=== PATIENT | male | born 1950 | race Caucasian/White ===

== ENCOUNTER 2025-04-03 14:43 | Inpatient (IN) | payer MEDICARE, OTHER ==
[~2025-04-03] VITALS: Ht 170.2 cm; Wt 78.5 kg
[2025-04-03] MEDS ORDERED: LORAZEPAM 2 MG/1 ML VIAL ONE (16:00)
[2025-04-03] MEDS: LORAZEPAM 2 MG/1 ML VIAL IM ONE (16:04)
[2025-04-03] MEDS ORDERED: HALOPERIDOL LACTATE 5 MG/1 ML VIAL ONE (16:05)
[2025-04-03] MEDS ORDERED: diphenhydrAMINE 50 MG/1 ML VIAL ONE (16:05)
[2025-04-03] MEDS: diphenhydrAMINE 50 MG/1 ML VIAL IM ONE (16:16)
[2025-04-03] MEDS: HALOPERIDOL LACTATE 5 MG/1 ML VIAL IM ONE (16:16)
[2025-04-03] MEDS ORDERED: OXCA150T5 PO (16:48)
[2025-04-03] MEDS ORDERED: HYDR453. TP (16:48)
[2025-04-03] MEDS ORDERED: POLY250017 PO (16:48)
[2025-04-03] MEDS ORDERED: DIPH103G TP (16:48)
[2025-04-03] MEDS ORDERED: FLUT1BLS6 INH (16:48)
[2025-04-03] MEDS ORDERED: IPRA3AMP22 IH (16:48)
[2025-04-03] MEDS ORDERED: ATOR20TA PO (16:48)
[2025-04-03] MEDS ORDERED: ONDA-104 PO (16:48)
[2025-04-03] MEDS ORDERED: SENN1TAB77 PO (16:48)
[2025-04-03] MEDS ORDERED: TELM40TA2 PO (16:48)
[2025-04-03] MEDS ORDERED: OLAN5TAB3 PO (16:48)
[2025-04-03] MEDS ORDERED: TIOT18CA3 IH (16:48)
[2025-04-03] MEDS ORDERED: MINE133E RC (16:48)
[2025-04-03] MEDS ORDERED: AMLO10TA59 PO (16:48)
[2025-04-03] MEDS ORDERED: NICO-671 TD (16:48)
[2025-04-03] MEDS ORDERED: MAGN400O6 PO (16:48)
[2025-04-03] MEDS ORDERED: BUDE10.2 IH (16:48)
[2025-04-03] MEDS ORDERED: OLAN2.5T3 PO (16:48)
[2025-04-03] MEDS ORDERED: BISA10SU61 RC (16:48)
[2025-04-03] MEDS ORDERED: CETI-194 PO (16:48)
[2025-04-03 16:55] LABS: PLATELET COUNT (AUTO) 197 K/uL (152-348); RED BLOOD CELL COUNT(AUTO) 4.06 MIL/uL (4.06-5.63); RED CELL DISTRIBUTION WIDTH 13.8 % (12.1-16.2); WHITE BLOOD COUNT (AUTO) 4.8 K/uL (3.6-10.2)
[2025-04-03 17:05] LABS: CREATININE 1.4 mg/dL (0.6-1.3); ETHANOL < 3 MG/DL (0-10); SODIUM SERUM 144 mmol/L (136-145); UREA NITROGEN, BLOOD 30 mg/dL (7-18)
[2025-04-03 17:11] LABS: ASPARTATE AMINOTRANSFERASE 17 U/L (15-37); TOTAL PROTEIN, SERUM 6.7 g/dL (6.4-8.2)
[2025-04-03 17:16] LABS: LACTIC ACID 3.6 mmol/L (0.4-2.0)
[2025-04-03 17:17] LABS: *BILIRUBIN,URIN NEGATIVE (NEGATIVE); *CLARITY,URINE CLEAR (CLEAR); *COLOR,URINE YELLOW (YELLOW); *KETONES,URINE NEGATIVE (NEGATIVE); *PROTEIN,URINE NEGATIVE (NEGATIVE); *UROBILINOGEN,URINE 0.2 E.U./dl (NORMAL); LEUKOCYTE ESTERASE ,URINE NEGATIVE (NEGATIVE); NITRITE, URINE NEGATIVE (NEGATIVE); UGLUCOSE NEGATIVE (NEGATIVE)
[2025-04-03 17:18] LABS: *BLOOD, URINE TRACE (NEGATIVE)
[2025-04-03 17:29] LABS: *AMPHETAMINE, URINE NEGATIVE (NEGATIVE); *BARBITURATE, URINE NEGATIVE (NEGATIVE); *BENZODIAZEPINE, URINE POSITIVE (NEGATIVE); *CANNABINOID, URINE NEGATIVE (NEGATIVE); *COCCAINE, URINE NEGATIVE (NEGATIVE); *OPIATE, URINE NEGATIVE (NEGATIVE); *PHENCYCLIDINE SCREEN,URINE NEGATIVE (NEGATIVE); FENTANYL, URINE NEGATIVE (NEGATIVE)
[2025-04-03 17:32] LABS: SQUAMOUS EPITHELIAL CELL,UR FEW /HPF (NONE SEEN)
[2025-04-03] MEDS ORDERED: MAGNESIUM HYDROXIDE 30 ML LIQUID UDC PO PRN ×2 (19:00→21:15)
[2025-04-03] MEDS ORDERED: BISACODYL 10 MG SUPP.RECT RC PRN (19:00)
[2025-04-03] MEDS ORDERED: MINERAL OIL FLEET ENEMA 133 ML BOTTLE RC PRN (19:00)
[2025-04-03 20:06] VITALS: BP 145/94
[2025-04-03] MEDS ORDERED: MAG HYDROX/AL HYDROX/SIMETH 30 ML LIQUID UDC PO PRN (21:15)
[2025-04-03] MEDS ORDERED: QUETIAPINE FUMARATE 25 MG TABLET PO PRN (21:15)
[2025-04-03 21:35] VITALS: BP 128/100; TEMP 98.2; O2SAT 96
[2025-04-03] MEDS: BLOOD SUGAR DIAGNOSTIC 1 EACH STRIP VI ONE (21:49)
[2025-04-03] MEDS: SENNOSIDES/DOCUSATE SODIUM TABLET PO SCH (22:30)
[2025-04-03] MEDS: ATORVASTATIN 20 MG TABLET PO SCH (22:43)
[2025-04-03] MEDS: ZOLPIDEM 5 MG TABLET PO PRN (22:44)
[2025-04-03] MEDS: QUETIAPINE FUMARATE 25 MG TABLET PO PRN (23:54)
[2025-04-04 08:10] LABS: PLATELET COUNT (AUTO) 212 K/uL (152-348); RED BLOOD CELL COUNT(AUTO) 4.47 MIL/uL (4.06-5.63); RED CELL DISTRIBUTION WIDTH 13.9 % (12.1-16.2); WHITE BLOOD COUNT (AUTO) 5.7 K/uL (3.6-10.2)
[2025-04-04] MEDS: NICOTINE 14 MG/24HR PATCH TD SCH (08:54)
[2025-04-04] MEDS: AMLODIPINE 10 MG TABLET PO SCH (08:57)
[2025-04-04] MEDS: LOSARTAN POTASSIUM 50 MG TABLET PO SCH (08:57)
[2025-04-04] MEDS: CETIRIZINE HCL 10 MG TABLET PO SCH (08:57)
[2025-04-04 08:58] VITALS: BP 118/77; TEMP 98.2; O2SAT 96
[2025-04-04 08:58] LABS: ASPARTATE AMINOTRANSFERASE 31 U/L (15-37); CREATININE 1.0 mg/dL (0.6-1.3); GLUCOSE FASTING 96 mg/dL (70-115); SODIUM SERUM 141 mmol/L (136-145); TOTAL PROTEIN, SERUM 7.4 g/dL (6.4-8.2); UREA NITROGEN, BLOOD 22 mg/dL (7-18)
[2025-04-04] MEDS ORDERED: OXCARBAZEPINE 150 MG TABLET PO SCH (09:00)
[2025-04-04] MEDS ORDERED: OLANZAPINE 5 MG TABLET PO SCH (09:00)
[2025-04-04] MEDS: OLANZAPINE ZYDIS 5 MG TAB.RAPDIS PO PRN (12:41)
[2025-04-04] MEDS: NEUTRA PHOS PACKET PO ONE (12:42)
[2025-04-04] MEDS: DIVALPROEX 125 MG TABLET.DR PO SCH (13:24)
[2025-04-04 16:54] VITALS: BP 159/84; TEMP 98.2; O2SAT 96
[2025-04-04 20:00] VITALS: BP 116/74; TEMP 98; O2SAT 96
[2025-04-04] MEDS: MIRTAZAPINE 15 MG TABLET PO SCH (20:43)
[2025-04-04] MEDS: OLANZAPINE 5 MG TABLET PO SCH (20:43)
[2025-04-04] MEDS: ZOLPIDEM 5 MG TABLET PO PRN (23:16)
[2025-04-05 08:00] VITALS: BP 106/70; TEMP 97.2; O2SAT 97
[2025-04-05] MEDS: DIVALPROEX 250 MG TABLET.DR PO SCH (13:43)
[2025-04-05] MEDS ORDERED: DIVALPROEX 125 MG TABLET.DR PO SCH (14:00)
[2025-04-05 16:00] VITALS: BP 119/82; TEMP 97.5; O2SAT 97
[2025-04-05 18:50] VITALS: O2SAT 97
[2025-04-05 19:00] VITALS: O2SAT 99
[2025-04-05] MEDS: IPRATROPIUM BROMIDE 0.5 MG/2.5 ML NEBU NEB PRN (19:14)
[2025-04-05] MEDS: ALBUTEROL SULFATE 2.5 MG/ 0.5 ML NEBU NEB PRN (19:15)
[2025-04-05 20:00] VITALS: BP 125/82; TEMP 98.2; O2SAT 95
[2025-04-06 08:02] VITALS: BP 122/76; TEMP 98.2; O2SAT 96
[2025-04-06] MEDS: ACETAMINOPHEN 325 MG TABLET PO PRN (09:19)
[2025-04-06 15:27] VITALS: BP_SYST 109; BP_SYST 90; BP_DIAS 52; TEMP 98; O2SAT 100; O2SAT 96
[2025-04-06] MEDS: OLANZAPINE 10 MG VIAL IM ONE (17:04)
[2025-04-06 17:15] VITALS: O2SAT 95
[2025-04-06 17:23] VITALS: O2SAT 98
[2025-04-06 20:51] VITALS: BP 125/70; TEMP 98.1; O2SAT 95
[2025-04-07] VITALS (8 sets, daily range): BP systolic 114–152; BP diastolic 62–81; TEMP 98–98.1; O2SAT 93–100
[2025-04-07] MEDS: MUPIROCIN 2% OINT 22 GM TUBE NS SCH (09:15)
[2025-04-07] MEDS: OLANZAPINE 2.5 MG TABLET PO SCH (10:52)
[2025-04-08] VITALS (7 sets, daily range): BP systolic 125–169; BP diastolic 70–101; TEMP 97.5; O2SAT 96–98
[2025-04-08] MEDS: OLANZAPINE 2.5 MG TABLET PO SCH (08:13)
[2025-04-08] MEDS: OLANZAPINE 10 MG VIAL IM ONE (08:20)
[2025-04-09 08:24] VITALS: BP 101/60; TEMP 98.3; O2SAT 98
[2025-04-09 14:35] VITALS: O2SAT 95
[2025-04-09 14:45] VITALS: O2SAT 98
[2025-04-09 16:41] VITALS: BP 105/68; TEMP 97.5; O2SAT 98
[2025-04-09 23:30] VITALS: O2SAT 95
[2025-04-09 23:40] VITALS: O2SAT 98
[2025-04-10 08:24] VITALS: BP 144/71; TEMP 98.3; O2SAT 98
[2025-04-10] MEDS ORDERED: OLANZAPINE 2.5 MG TABLET PO SCH (14:00)
[2025-04-10] MEDS: OLANZAPINE 5 MG TABLET PO SCH (14:10)
[2025-04-10 15:20] VITALS: O2SAT 98
[2025-04-10 15:30] VITALS: O2SAT 99
[2025-04-10 16:45] VITALS: BP 133/77; TEMP 98; O2SAT 98
[2025-04-11] MEDS ORDERED: DIVALPROEX 250 MG TABLET.DR PO SCH (14:00)
[2025-04-11] MEDS: DIVALPROEX 125 MG TABLET.DR PO SCH (14:15)
[2025-04-11 20:00] VITALS: BP 136/78; TEMP 98.4; O2SAT 98
[2025-04-12] VITALS (8 sets, daily range): BP systolic 130–147; BP diastolic 78–85; TEMP 97.7; O2SAT 94–97
[2025-04-12 07:35] LABS: PLATELET COUNT (AUTO) 220 K/uL (152-348); RED BLOOD CELL COUNT(AUTO) 4.66 MIL/uL (4.06-5.63); RED CELL DISTRIBUTION WIDTH 13.4 % (12.1-16.2); WHITE BLOOD COUNT (AUTO) 4.7 K/uL (3.6-10.2)
[2025-04-12 07:48] LABS: CREATININE 1.4 mg/dL (0.6-1.3); SODIUM SERUM 147 mmol/L (136-145); UREA NITROGEN, BLOOD 30 mg/dL (7-18)
[2025-04-12] MEDS: OLANZAPINE 5 MG TABLET PO SCH (21:24)
[2025-04-13 08:15] VITALS: BP 100/65; TEMP 98.2; O2SAT 96
[2025-04-13 15:12] VITALS: BP 123/77; TEMP 98; O2SAT 96
[2025-04-13] MEDS: GABAPENTIN 100 MG CAPSULE PO SCH (16:48)
[2025-04-13 20:10] VITALS: BP 112/66; TEMP 98.1; O2SAT 96; O2SAT 97
[2025-04-13 20:21] VITALS: O2SAT 97
[2025-04-13 20:25] VITALS: O2SAT 97
[2025-04-14 07:59] VITALS: BP 104/77; TEMP 98; O2SAT 96
[2025-04-14 08:01] LABS: PLATELET COUNT (AUTO) 221 K/uL (152-348); RED BLOOD CELL COUNT(AUTO) 4.60 MIL/uL (4.06-5.63); RED CELL DISTRIBUTION WIDTH 13.2 % (12.1-16.2); WHITE BLOOD COUNT (AUTO) 5.9 K/uL (3.6-10.2)
[2025-04-14 08:38] LABS: CREATININE 1.2 mg/dL (0.6-1.3); LACTATE DEHYDROGENASE 219 U/L (85-227); SODIUM SERUM 145 mmol/L (136-145); UREA NITROGEN, BLOOD 31 mg/dL (7-18)
[2025-04-14 08:56] LABS: VALPROIC ACID 51 ug/mL (50-100)
[2025-04-14] MEDS: GABAPENTIN 100 MG CAPSULE PO SCH (14:00)
[2025-04-14] MEDS ORDERED: DIVALPROEX 125 MG TABLET.DR PO SCH (14:00)
[2025-04-14] MEDS: DIVALPROEX 500 MG TABLET.DR PO SCH (14:00)
[2025-04-14 15:44] VITALS: BP_SYST 129; BP_SYST 130; BP_DIAS 63; BP_DIAS 71; TEMP 98; O2SAT 96; O2SAT 98
[2025-04-14 20:01] VITALS: BP 169/91; TEMP 97.9; O2SAT 95
[2025-04-14] MEDS: OLANZAPINE 5 MG TABLET PO SCH (20:09)
[2025-04-14 20:10] VITALS: O2SAT 97
[2025-04-14 20:20] VITALS: O2SAT 97
[2025-04-14 21:36] VITALS: BP 118/70; O2SAT 96
[2025-04-15 08:30] VITALS: BP 129/68; TEMP 98; O2SAT 96
[2025-04-15 12:52] VITALS: O2SAT 96
[2025-04-15 13:07] VITALS: O2SAT 99
[2025-04-15 15:43] VITALS: BP 133/95; TEMP 98; O2SAT 96
[2025-04-15 19:40] VITALS: BP 117/71; TEMP 98; O2SAT 98
[2025-04-16 05:17] VITALS: O2SAT 96
[2025-04-16 05:27] VITALS: O2SAT 99
[2025-04-16 08:56] VITALS: BP 91/66; TEMP 97.8; O2SAT 96
[2025-04-16] MEDS: diphenhydrAMINE 25 MG CAP PO ONE (15:48)
[2025-04-16 16:52] VITALS: BP 130/64; TEMP 98; O2SAT 98
[2025-04-16 22:11] VITALS: O2SAT 96
[2025-04-16 22:21] VITALS: O2SAT 99
[2025-04-17 08:24] VITALS: BP 128/61; TEMP 98; O2SAT 98
[2025-04-17] MEDS: HYDROCORTISONE 1% CREAM 30 GM TUBE TP PRN (08:34)
[2025-04-17] MEDS ORDERED: LORATADINE 10 MG TABLET PO SCH (09:00)
[2025-04-17] MEDS: GABAPENTIN 300 MG CAPSULE PO SCH (14:07)
[2025-04-17 16:05] VITALS: O2SAT 96
[2025-04-17 16:15] VITALS: O2SAT 99
[2025-04-17 16:39] VITALS: BP 134/64; TEMP 98; O2SAT 98
[2025-04-17 20:07] VITALS: BP 136/66; TEMP 98.1; O2SAT 96
[2025-04-18 05:45] VITALS: O2SAT 95
[2025-04-18 05:55] VITALS: O2SAT 99
[2025-04-18 08:20] VITALS: BP 136/66; TEMP 98.1; O2SAT 96
[2025-04-18] MEDS: ENSURE ENLIVE (VAN) 240 ML LIQUID PO SCH (09:04)
[2025-04-18 09:32] VITALS: BP 131/62
[2025-04-18 11:50] VITALS: O2SAT 95
[2025-04-18 12:05] VITALS: O2SAT 98
== END 2025-04-18 15:00 | DRG 884 ==
LOC: ER 14:43 → GPS 19:50
PROVIDERS: ADMIT Psychiatry & Neurology Psychiatry; ATTEND Internal Medicine
DX: F03.911 Unspecified dementia, unspecified severity, with agitation (principal); N18.9 Chronic kidney disease, unspecified; N17.9 Acute kidney failure, unspecified; E87.20 Acidosis, unspecified; G93.40 Encephalopathy, unspecified; F31.9 Bipolar disorder, unspecified; F03.92 Unspecified dementia, unspecified severity, with psychotic disturbance; F03.918 Unspecified dementia, unspecified severity, with other behavioral disturbance; F03.93 Unspecified dementia, unspecified severity, with mood disturbance; B18.2 Chronic viral hepatitis C; E78.5 Hyperlipidemia, unspecified; J44.9 Chronic obstructive pulmonary disease, unspecified; Z85.820 Personal history of malignant melanoma of skin; Z84.1 Family history of disorders of kidney and ureter; Z91.411 Personal history of adult psychological abuse; I13.10 Hypertensive heart and chronic kidney disease without heart failure, with stage 1 through stage 4 chronic kidney disease, or unspecified chronic kidney disease; Z78.1 Physical restraint status; F17.210 Nicotine dependence, cigarettes, uncomplicated; E87.5 Hyperkalemia; Z79.899 Other long term (current) drug therapy; Z79.51 Long term (current) use of inhaled steroids; D72.821 Monocytosis (symptomatic); F19.21 Other psychoactive substance dependence, in remission
CPT/HCPCS: 36415; 70450; 71045; 76770; 80164; 83605; 83615; 83735; 84100; 84443; 84484; 85025; 85730; 87040; 87086; 94640; 94664; 94760; G0480; J1200; J1630; J2060; J2358; J3490; J3590; Q0163